=== PATIENT | male | born 2000 | race Caucasian/White ===

== ENCOUNTER 2024-11-06 22:55 | Emergency (ER) | payer OTHER, SELFPAY ==
[2024-11-06 22:58] VITALS: BP 130/78
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
== END 2024-11-07 01:04 | disposition home or self-care (01) ==
LOC: EMR 22:55
PROVIDERS: EMERGENCY PHYSICIAN Student in an Organized Health Care Education/Training Program; FAMILY PHYSICIAN Family Medicine
DX: S93.402A Sprain of unspecified ligament of left ankle, initial encounter (principal); X58.XXXA Exposure to other specified factors, initial encounter; F17.290 Nicotine dependence, other tobacco product, uncomplicated
CPT/HCPCS: 99283; 73610

== ENCOUNTER → 2025-03-23 09:48 | Outpatient (REF) | payer OTHER, SELFPAY | LOC: RAD 09:48 | PROVIDERS: ATTENDING PHYSICIAN Nurse Practitioner Family; FAMILY PHYSICIAN Family Medicine | DX: M25.562 Pain in left knee (principal) | CPT/HCPCS: 73564; 73610 ==

== ENCOUNTER 2025-04-17 16:32 | Emergency (ER) | payer OTHER, SELFPAY ==
[2025-04-17 16:52] VITALS: BP 132/91
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
[2025-04-17] MEDS: MOTRIN 600 MG PO (18:57)
== END 2025-04-17 19:23 | disposition home or self-care (01) ==
LOC: EMR 16:32
PROVIDERS: EMERGENCY PHYSICIAN Emergency Medicine; FAMILY PHYSICIAN Family Medicine
DX: M54.50 Low back pain, unspecified (principal); M41.9 Scoliosis, unspecified; F32.A Depression, unspecified; F17.290 Nicotine dependence, other tobacco product, uncomplicated; V43.52XA Car driver injured in collision with other type car in traffic accident, initial encounter; Y92.410 Unspecified street and highway as the place of occurrence of the external cause
CPT/HCPCS: 99283; 72110